=== PATIENT | female | born 1965 | race Caucasian/White ===

== ENCOUNTER → 2017-10-07 | Outpatient (CLI) | payer MEDICARE, MEDICAID | LOC: MHCPAIN 12:23 | DX: G89.29 Other chronic pain (principal); M54.5 Low back pain; R51 Headache; F17.200 Nicotine dependence, unspecified, uncomplicated | CPT/HCPCS: G0463 ==

== ENCOUNTER → 2017-11-03 | Outpatient (CLI) | payer MEDICARE, MEDICAID | LOC: MHCPAIN 11:06 | DX: G89.29 Other chronic pain (principal); M50.90 Cervical disc disorder, unspecified, unspecified cervical region; M54.81 Occipital neuralgia; R51 Headache | CPT/HCPCS: G0463 ==

== ENCOUNTER → 2017-12-03 | Outpatient (CLI) | payer MEDICARE, MEDICAID | LOC: MHCPAIN 10:08 | DX: G89.29 Other chronic pain (principal); M50.90 Cervical disc disorder, unspecified, unspecified cervical region; M54.81 Occipital neuralgia; R51 Headache | CPT/HCPCS: G0463 ==

== ENCOUNTER → 2017-12-31 | Outpatient (CLI) | payer MEDICARE, MEDICAID | LOC: MHCPAIN 10:34 | DX: G89.29 Other chronic pain (principal); M50.90 Cervical disc disorder, unspecified, unspecified cervical region; M54.81 Occipital neuralgia; R51 Headache | CPT/HCPCS: G0463 ==

== ENCOUNTER → 2018-01-30 | Outpatient (CLI) | payer MEDICARE, MEDICAID | LOC: MHCPAIN 10:23 | DX: G89.29 Other chronic pain (principal); M50.90 Cervical disc disorder, unspecified, unspecified cervical region; M54.12 Radiculopathy, cervical region; M54.81 Occipital neuralgia; R51 Headache; M25.552 Pain in left hip; M25.551 Pain in right hip | CPT/HCPCS: G0463 ==

== ENCOUNTER → 2018-02-24 | Outpatient (CLI) | payer MEDICARE, MEDICAID | LOC: MHCPAIN 12:36 | DX: G89.29 Other chronic pain (principal); M50.90 Cervical disc disorder, unspecified, unspecified cervical region; M54.81 Occipital neuralgia; R51 Headache; M25.551 Pain in right hip | CPT/HCPCS: G0463 ==

== ENCOUNTER → 2018-03-25 | Outpatient (CLI) | payer MEDICARE, MEDICAID | LOC: MHCPAIN 12:38 | DX: G89.29 Other chronic pain (principal); M50.90 Cervical disc disorder, unspecified, unspecified cervical region; M54.12 Radiculopathy, cervical region; M54.81 Occipital neuralgia; R51 Headache | CPT/HCPCS: G0463 ==

== ENCOUNTER → 2018-04-22 | Outpatient (CLI) | payer MEDICARE, MEDICAID | LOC: MHCPAIN 13:08 | DX: G89.29 Other chronic pain (principal); M50.90 Cervical disc disorder, unspecified, unspecified cervical region; M54.81 Occipital neuralgia; R51 Headache | CPT/HCPCS: G0463 ==

== ENCOUNTER → 2018-05-19 | Outpatient (CLI) | payer MEDICARE, MEDICAID | LOC: MHCPAIN 13:00 | DX: G89.29 Other chronic pain (principal); M53.3 Sacrococcygeal disorders, not elsewhere classified; M54.81 Occipital neuralgia; M50.90 Cervical disc disorder, unspecified, unspecified cervical region | CPT/HCPCS: G0463 ==

== ENCOUNTER 2019-08-03 15:34 | Inpatient (IN) | payer MEDICARE, MEDICAID ==
[~2019-08-03] VITALS: Ht 160 cm; Wt 82.9 kg
[2019-09-27] VITALS (12 sets, daily range): BP systolic 127–152; BP diastolic 66–84; PULSE 76–103; TEMP 98–99
[2019-09-27] MEDS ORDERED: NORCO 325 MG-7.1 TAB PO (07:19)
[2019-09-27] MEDS ORDERED: PRINIVIL10 MG PO (07:19)
[2019-09-27] MEDS ORDERED: TEGRETOL 2200 MG/TA1 PO ×2 (07:21→07:22)
[2019-09-27] MEDS ORDERED: LYRICA200 MG PO (07:24)
[2019-09-27] MEDS ORDERED: PRIL40 PO (07:25)
[2019-09-27] MEDS ORDERED: LEVOXYL0.175 MG PO (07:25)
[2019-09-27] MEDS ORDERED: MYRBETR50MG PO (07:26)
[2019-09-27] MEDS ORDERED: ZESTRIL 10MG10 MG PO (07:26)
[2019-09-27] MEDS ORDERED: SEROQUEL400 MG PO (07:27)
[2019-09-27] MEDS ORDERED: XANAX 0.5MG0.5 MG PO ×2 (07:28→07:29)
[2019-09-27] MEDS ORDERED: DESYREL DIVIDO150 M1 PO (07:30)
[2019-09-27] MEDS ORDERED: WELLBUTRIN 100100 MG PO (07:33)
--- NOTE | 2019-09-27 13:17 | NUR ---
PATIENT TO ROOM 328 PER BED WITH REPORT FROM LEORA MULLEN @[id number]. PT IS A/O X3, AQUCA CELL CDI OVER INCISION. SCDS AND TEDS BILATERAL. IV PER PUMP. PT TOLERATING WELL. VSS.
--- NOTE | 2019-09-27 14:56 | NUR ---
Assistant Professor Of Mathematics met with patient to discuss discharge planning. Patient lives alone in [place] in an apartment complex. Patient sees Dr. Noble for primary care and obtains medications from [facility] with no difficulties. Patient states she had her other hip replaced about a year ago and stayed at [facility] upon discharge for about four days. Patient states she has discussed discharge with Dr. Mcnamara who advised she would discharge home on Friday. Patient states she feels somewhat okay about this. Patient reports she has in home services from [place] and also has several friends that live in her apartment building that could help her. Patient plans to have outpatient therapy at [facility]. Patient states she has Advance Directives which designate her daughter Nita (ph#[phone]) but SW did not locate a copy in the EMR. SW will continue to follow and review therapy notes to ensure safe discharge.
--- NOTE | 2019-09-27 21:40 | NUR ---
Pt. sitting up in bed at this time. Pt. is A&OX3, assessment complete. INT to lt. upper arm is infiltarted, new site started to rt. hand. Pt. tolerated well. Dressing to lt. hip CDI. Pt. reports pain at a 5 on pain scale, gave pain meds per orders. Pt. also c/o discomfort with the laurent catheter. AGUILAR Rodriguez notified, or to take out laurent at this time. Pt. tolerated well. Pt. denies further needs, call light within reach.
[2019-09-28 03:50] VITALS: BP 123/66; PULSE 100; TEMP 97.8
[2019-09-28 07:23] VITALS: BP 110/60; PULSE 104; TEMP 99.3
[2019-09-28 07:44] LABS: HEMOGLOBIN 11.8 g/dl (12.5-16.0)
[2019-09-28 07:50] LABS: HEMATOCRIT 36.3 % (37.0-47.0)
--- NOTE | 2019-09-28 07:53 | NUR ---
Initial visit; Patient thanked Election Supervisor for looking in on her and offering spiritual care. Patient has good support system who will contact her Customer Operations Specialist.
--- NOTE | 2019-09-28 09:45 | NUR ---
PT UP TO RECLINER FOR BREAKFAST. AM MEDS GIVEN ORDERED. WORKED WITH THERAPY AND COMPLETED ALL TASKS. PAIN CONTROLLED WITH PO MED AT THIS TIME.
[2019-09-28 11:11] VITALS: BP 108/57; PULSE 90; TEMP 98.7
[2019-09-28 16:34] VITALS: BP 116/67; PULSE 103; TEMP 99.2
--- NOTE | 2019-09-28 16:53 | NUR ---
Clinical Systems Educator reviewed PT's note which recommended Home with outpatient PT vs Home Health PT. SW reviewed this with patient who expressed some interest in Home Health. SW provided Medicare.gov list of agencies that provide HH services and will continue to follow. Patient advised she wanted to time review options.
--- NOTE | 2019-09-28 19:08 | NUR ---
REPORT TO TOPHER MULLEN
--- NOTE | 2019-09-28 20:00 | NUR ---
Pt. sitting up in chair at this time. Pt. is A&OX3, assessment complete. INT to rt. hand patent. Pt. reported pain at a 6 on pain scale, gave pain meds per orders. Dressing to lt. hip CDI. Pt. denies further needs, call light within reach.
[2019-09-28 20:50] VITALS: BP 138/76; PULSE 121; TEMP 101.5
[2019-09-28 23:37] VITALS: TEMP 98.8
[2019-09-29] MEDS ORDERED: ROXICODONE 55 MG/TAB PO (07:55)
[2019-09-29] MEDS ORDERED: ASPI325T6 PO (07:55)
[2019-09-29 07:58] VITALS: BP 113/67; PULSE 115; TEMP 99.4
[2019-09-29 11:07] VITALS: BP 120/55; PULSE 96; TEMP 99
--- NOTE | 2019-09-29 14:56 | NUR ---
Discharge teaching completed. Discussed follow up appointments and discharge instructions, patient verbalized understanding. Arelis sent home with patient with instructions to change it in seven days. INT removed, catheter intact, hemostasis achieved. Patient escorted to visitor entrance where she entered a private vehicle.
--- NOTE | 2019-09-29 15:23 | NUR ---
Patient resting in bedside chair at this time. Patient reports 7/10 pain in her left hip/leg. Administered PRN pain medication per order. Patient is alert and oriented, answers questions appropriately. Patient reports that she is anxious to go home this afternoon, denies further needs at this time.
--- NOTE | 2019-09-29 17:14 | NUR ---
Cash Specialist followed up with patient on discharge planning. Patient confirmed she preferred Home Health to outpatient Physical Therapy. Patient reviewed Medicare.gov list of options and selected [facility]. ZENAIDA contacted [facility] and faxed referral. ZENAIDA collaborated with RNNancy to communicate with CHIDI Hernandez to change orders to . ZENAIDA faxed Home Health orders to [facility]. Patient to discharge home today.
== END 2019-09-29 15:05 | disposition home health service (06) | DRG 470 ==
LOC: JCC 09-27 06:38
PROVIDERS: ADMIT Orthopaedic Surgery
PROC: 0SRB04Z Replacement of Left Hip Joint with Ceramic on Polyethylene Synthetic Substitute, Open Approach (ICD-10-PCS; principal; 2019-09-27 10:20)
DX: M16.12 Unilateral primary osteoarthritis, left hip (principal); I10 Essential (primary) hypertension; K21.9 Gastro-esophageal reflux disease without esophagitis; M79.7 Fibromyalgia; E78.00 Pure hypercholesterolemia, unspecified; E03.9 Hypothyroidism, unspecified; F32.9 Major depressive disorder, single episode, unspecified; Z87.11 Personal history of peptic ulcer disease
CPT/HCPCS: A4314; A9284; C1713; C1776; J0690; J1100; J1170; J1885; J2250; J2405; J2704; J3010

== ENCOUNTER → 2019-09-22 | Outpatient (CLI) | payer MEDICARE, MEDICAID ==
[2019-09-22 13:31] LABS: HIV 1/2 Antibodies Non-Reactive; HIV-1p24 Antigen Non-Reactive
== END ==
LOC: COL.LAB 11:09
PROVIDERS: Orthopaedic Surgery
DX: Z01.812 Encounter for preprocedural laboratory examination (principal); M16.12 Unilateral primary osteoarthritis, left hip